=== PATIENT | male | born 1960 | race Two or more races ===

== ENCOUNTER 2019-07-28 11:00 | Inpatient (IN) | payer MEDICAID, OTHER ==
[~2019-07-28] VITALS: Ht 180.3 cm; Wt 120.0 kg
[2019-07-28] MEDS ORDERED: SODIUM CHLORIDE 0.9% 1,000 ML IVB ONE (11:13)
[2019-07-28] MEDS ORDERED: ONDANSETRON HCL 4 MG/2 ML VIAL IV ONE (11:15)
[2019-07-28] MEDS ORDERED: SODIUM CHLORIDE 0.9% 1,000 ML IV ONE (11:15)
[2019-07-28 11:36] LABS: Basophils # (auto) 0.1 10 ^3/uL (0-0.2); Basophils % (auto) 0.8 % (0.0-2.0); Eosinophils # (auto) 0 10 ^3/uL (0-0.8); Eosinophils % (auto) 0.2 % (0.0-7.0); Hematocrit 42.3 % (41.0-53.0); Hemoglobin 14.2 g/dL (13.5-17.5); Lymphocytes # (auto) 2.5 10 ^3/uL (0.4-5.4); Lymphocytes % (auto) 16.8 % (10.0-50.0); Mean Corpuscular Hemoglobin 32.8 pg (28.0-32.0); Mean Corpuscular Hgb Conc. 33.4 g/dL (32.0-36.0); Mean Corpuscular Volume 98.2 fL (80.0-100.0); Monocytes # (auto) 1.6 10 ^3/uL (0-1.3); Neutrophils # (auto) 10.4 10 ^3/uL (1.6-8.6); Neutrophils % (auto) 71.2 % (37.0-80.0); Nucleated Red Blood Cells % 0.1 %; Platelet Count (auto) 306 10^3/uL (140-450); Red Blood Cells 4.31 10^6/uL (4.5-5.90); Red Cell Distribution Width 12.5 % (11.8-14.3); White Blood Cell 14.6 10^3/uL (4.4-10.8)
[2019-07-28 11:51] LABS: INR 1.07 (0.9-1.15); Partial Thromboplastin Time 28.2 sec (23.64-32.05)
[2019-07-28 11:59] LABS: Albumin 3.7 g/dL (3.4-5.0); Calcium 9.7 mg/dL (8.5-10.1); Magnesium 2.2 mg/dL (1.6-2.6); Potassium 5.1 mmol/L (3.5-5.1)
[2019-07-28 12:08] LABS: BUN/Creatinine Ratio 17.4; Bilirubin, Total 2.8 mg/dL (0.2-1.0); Total Protein 8.5 g/dL (6.4-8.2)
[2019-07-28] MEDS ORDERED: InsuLIN R (HUMAN) 100 UNITS in SODIUM CHL 0.9% 99 ML IV SCH (12:18)
[2019-07-28] MEDS ORDERED: DEXTROSE (50%) 50ML SYRG IV PRN (12:30)
[2019-07-28 13:39] LABS: Urine Amorphous Crystal FEW /hpf (None Seen); Urine Bacteria FEW /hpf (None Seen); Urine Blood Negative /uL (Negative); Urine Hyaline Cast FEW /lpf (0 - 2); Urine Mucus FEW (None Seen); Urine Specific Gravity 1.018 (1.001-1.035); Urine WBC 4 /hpf (0 - 3)
[2019-07-28] MEDS: ACCU-CHEK COMFORT CURVE STRIP VI SCH ×7 (13:43→23:00)
[2019-07-28] MEDS: SODIUM CHLORIDE 0.9% 1,000 ML IV SCH ×5 (14:40→23:00)
[2019-07-28] MEDS ORDERED: HYDROcodone-ACET 5/325MG TAB PO PRN (15:30)
[2019-07-28] MEDS ORDERED: ACETAMINOPHEN 500 MG TAB PO PRN (15:30)
[2019-07-28] MEDS ORDERED: ONDANSETRON HCL 4 MG/2 ML VIAL IV PRN (15:30)
[2019-07-28] MEDS ORDERED: NITROGLYCERIN 0.4 MG SL TAB SL PRN (15:30)
[2019-07-28] MEDS ORDERED: MORPHINE SULF INJ 2 MG/ML SYRINGE 1ML IV PRN ×2 (15:30)
[2019-07-28] MEDS ORDERED: SODIUM CHLORIDE 0.9% 1,000 ML IV SCH (16:18)
[2019-07-28 20:20] LABS: BUN/Creatinine Ratio 22.7; Calcium 8.5 mg/dL (8.5-10.1); Magnesium 2.3 mg/dL (1.6-2.6); Phosphorus 2.8 mg/dL (2.5-4.90); Potassium 4.1 mmol/L (3.5-5.1)
[2019-07-29 01:40] LABS: Albumin 3.1 g/dL (3.4-5.0); Calcium 8.2 mg/dL (8.5-10.1)
[2019-07-29] MEDS: ACCU-CHEK COMFORT CURVE STRIP VI SCH ×4 (01:42→18:27)
[2019-07-29] MEDS: SODIUM CHLORIDE 0.9% 1,000 ML IV SCH (01:42)
[2019-07-29 01:51] LABS: BUN/Creatinine Ratio 24.8; Bilirubin, Total 2.1 mg/dL (0.2-1.0)
[2019-07-29] MEDS ORDERED: DEXTROSE (50%) 50ML SYRG IV PRN ×2 (02:30→12:45)
[2019-07-29] MEDS: InsuLIN REG 1unit/0.01ml Soln (100units/ml) SC SCH ×3 (04:06→18:30)
[2019-07-29 06:34] LABS: Basophils # (auto) 0 10 ^3/uL (0-0.2); Basophils % (auto) 0.1 % (0.0-2.0); Eosinophils # (auto) 0.2 10 ^3/uL (0-0.8); Eosinophils % (auto) 1.7 % (0.0-7.0); Hematocrit 36.8 % (41.0-53.0); Hemoglobin 12.6 g/dL (13.5-17.5); Lymphocytes # (auto) 3.3 10 ^3/uL (0.4-5.4); Lymphocytes % (auto) 34.1 % (10.0-50.0); Mean Corpuscular Hemoglobin 33.1 pg (28.0-32.0); Mean Corpuscular Hgb Conc. 34.1 g/dL (32.0-36.0); Monocytes % (auto) 10.4 % (0.0-12.0); Neutrophils # (auto) 5.2 10 ^3/uL (1.6-8.6); Neutrophils % (auto) 53.7 % (37.0-80.0); Nucleated Red Blood Cells % 0.1 %; Platelet Count (auto) 232 10^3/uL (140-450); Red Blood Cells 3.79 10^6/uL (4.5-5.90); Red Cell Distribution Width 12.4 % (11.8-14.3); White Blood Cell 9.6 10^3/uL (4.4-10.8)
[2019-07-29 06:51] LABS: Magnesium 1.8 mg/dL (1.6-2.6); Potassium 4.2 mmol/L (3.5-5.1)
[2019-07-29 06:58] LABS: BUN/Creatinine Ratio 22.5; Calcium 8.2 mg/dL (8.5-10.1); Phosphorus 2.8 mg/dL (2.5-4.90); Total Protein 6.9 g/dL (6.4-8.2)
[2019-07-29] MEDS ORDERED: INSULIN LANTUS (GLARGINE) 1 /0.01ml (100units/ml) SC ONE (12:45)
--- NOTE | 2019-07-29 13:43 | NUR ---
MS admit from ER [facility] admitted to tele/MS after SBAR received. Patient oriented to DEE LEWIS, RN primary RN, unit, room, bed, and unit policies regarding patient care and visiting hours. Patient weighed by bedscale and encouraged to call if they need something. All questions and concerns addressed, patient verbalized understanding.
[2019-07-29 13:58] VITALS: BP 157/78
[2019-07-29] MEDS: FAMOTIDINE 20 MG TAB PO SCH (14:28)
[2019-07-29] MEDS: amLODIPine BESYLATE 5 MG TAB PO SCH (14:28)
[2019-07-29 15:06] VITALS: BP 157/78
[2019-07-29] MEDS ORDERED: CIPR500T4 PO (15:23)
[2019-07-29] MEDS ORDERED: ENAL20TA PO (15:23)
[2019-07-29] MEDS ORDERED: PHEN95TA PO (15:23)
[2019-07-29] MEDS ORDERED: METF-370 PO (15:23)
[2019-07-29 17:00] VITALS: BP 154/76
[2019-07-29 17:10] VITALS: BP 105/68
--- NOTE | 2019-07-29 19:34 | NUR ---
Closing Shift Note Patient resting in bed. No distress noted. Report given. Will endorse care to the slot shift supervisor RN.
--- NOTE | 2019-07-29 19:40 | NUR ---
RECEIVED PATIENT FROM DAY SHIFT RN. PATIENT RESTING IN BED.NO S/S OF DISTRESS NOTED. DENIED PAIN FOR NOW. RE-EDUCATED PATIENT ON DM INFORMATION AND DM DIET. ENCOURAGED PATIENT TO ATTEND THE DM CLASS. PATIENT VERBALIZED UNDERSTANDING. POC INSTRUCTED AND ENCOURAGED PATIENT TO CALL FOR [employer] PULVER[employer]ER OPERATOR IF NEEDED. BED IN LOWEST POSITION WITH SIDE RAILS UP X 2. CALL [facility] WITHIN REACH. CONTINUE TO MONITOR FOR CHANGES Q1H AND PRN
--- NOTE | 2019-07-29 20:15 | NUR ---
ACCU-CHECK, BS 206. INSULIN GIVEN ORDERED. CONTINUE TO MONITOR. Addendum: 07/30/19 at 0007 by Bernadette Yates RN WRONG NOTES
[2019-07-29] MEDS: INSULIN LANTUS (GLARGINE) 1 /0.01ml (100units/ml) SC SCH (21:53)
[2019-07-29 22:00] VITALS: BP 123/95
[2019-07-30] MEDS: InsuLIN REG 1unit/0.01ml Soln (100units/ml) SC SCH ×3 (00:01→12:00)
--- NOTE | 2019-07-30 00:07 | NUR ---
ACCU-CHECK, BS 361. INSULIN GIVEN ORDERED. CONTINUE TO MONITOR.
--- NOTE | 2019-07-30 03:26 | NUR ---
PATIENT SLEEPING. NO S/S OF DISTRESS NOTED. CONTINUE TO MONITOR.
[2019-07-30 05:00] VITALS: BP 134/68
[2019-07-30] MEDS: ACCU-CHEK COMFORT CURVE STRIP VI SCH ×3 (06:18→12:00)
--- NOTE | 2019-07-30 06:26 | NUR ---
ACCU-CHECK, BS 217. INSULIN GIVEN ORDERED. CONTINUE TO MONITOR.
[2019-07-30 06:36] LABS: Albumin 3.1 g/dL (3.4-5.0); Calcium 8.3 mg/dL (8.5-10.1); Potassium 3.5 mmol/L (3.5-5.1)
[2019-07-30 06:39] LABS: BUN/Creatinine Ratio 20.6; Total Protein 7.1 g/dL (6.4-8.2)
--- NOTE | 2019-07-30 07:30 | NUR ---
Opening Shift Note Assuming care of patient at this time. Patient is awake and alert. Patient denies pain. Patient shows no signs or symptoms of distress or shortness of breath. Bed is locked and lowered with side rails up x2. Instructed patient on the plan of care for today and to call for assistance as needed. Call light within reach. Will continue to round hourly and as needed.
[2019-07-30 09:00] VITALS: BP 123/83
[2019-07-30] MEDS ORDERED: METF-371 PO (10:00)
[2019-07-30] MEDS ORDERED: GLIP5TAB12 PO (10:00)
[2019-07-30] MEDS ORDERED: ASPI81CH43 PO (10:03)
[2019-07-30] MEDS: FAMOTIDINE 20 MG TAB PO SCH (10:30)
[2019-07-30] MEDS: amLODIPine BESYLATE 5 MG TAB PO SCH (10:30)
[2019-07-30] MEDS: INSULIN LANTUS (GLARGINE) 1 /0.01ml (100units/ml) SC SCH (10:39)
[2019-07-30 11:17] VITALS: BP 123/83
--- NOTE | 2019-07-30 12:10 | NUR ---
Discharge Discharge instructions given as ordered. Encourage to follow up with PMD as instructed. All questions and concerns addressed. Patient verbalized understanding. Medication reconciliation form completed and copy given to patient. IV removed with catheter intact, pressure dressing applied. Patient taken to vehicle via wheelchair with all personal belongings, accompanied by staff and family member. No distress noted at time of departure.
== END 2019-07-30 11:45 | disposition home or self-care (01) | DRG 420 ==
LOC: ER 11:00 → TELE 11:01 → UNDOADMIN 11:01 → DOU IN ICU 23:47 → TELE 23:47 → TELE-CENTR 07-29 13:43 → CENTRAL 07-29 19:36
PROVIDERS: ADMIT Nurse Practitioner; ATTEND Internal Medicine
DX: E11.10 Type 2 diabetes mellitus with ketoacidosis without coma (principal); N17.0 Acute kidney failure with tubular necrosis; R65.10 Systemic inflammatory response syndrome (SIRS) of non-infectious origin without acute organ dysfunction; E66.01 Morbid (severe) obesity due to excess calories; E44.1 Mild protein-calorie malnutrition; N18.3 Chronic kidney disease, stage 3 (moderate); E87.1 Hypo-osmolality and hyponatremia; E11.22 Type 2 diabetes mellitus with diabetic chronic kidney disease; E11.65 Type 2 diabetes mellitus with hyperglycemia; I12.9 Hypertensive chronic kidney disease with stage 1 through stage 4 chronic kidney disease, or unspecified chronic kidney disease; Z79.84 Long term (current) use of oral hypoglycemic drugs; Z79.899 Other long term (current) drug therapy; Z79.82 Long term (current) use of aspirin; Z91.018 Allergy to other foods; Z68.37 Body mass index [BMI] 37.0-37.9, adult
CPT/HCPCS: 36415; 36600; 71045; 74176; 80048; 80053; 80061; 81001; 82150; 82805; 82962; 83036; 83690; 83735; 84100; 85025; 85610; 85730; 93005; 96361; 96365; 99291; G0378; J1815; J2405